=== PATIENT | male | born 1985 | race American Indian/Alaskan Native ===

== ENCOUNTER 2019-04-20 07:53 | Emergency (ER) | payer SELFPAY ==
[2019-04-20 08:09] VITALS: BP 185/86
[2019-04-20] MEDS ORDERED: ACETAMINOPHEN 325 MG TAB PO ONE (08:10)
[2019-04-20] MEDS ORDERED: ACETAMINOPHEN 325 MG TAB ONE (08:12)
[2019-04-20] MEDS ORDERED: ONDANSETRON 4 MG/2 ML INJ IM ONE (08:43)
[2019-04-20] MEDS ORDERED: KETOROLAC 60 MG/2 ML INJ IM ONE (08:43)
--- NOTE | 2019-04-20 09:08 | XRay Report ---
CHEST 2 VIEWS INDICATION: productive cough with fever. COMPARISON: None FINDINGS: Support devices: None. Heart: Within normal limits. Lungs/pleura: Patchy infiltrate is identified throughout the left upper lobe. The right lung is clear . No significant pleural effusion or pneumothorax is detected. Additional findings: None. IMPRESSION: Left upper lobe pneumonia Signer Name: Deejay Johnson Jr, MD Signed: 04/20/2019 9:03 AM Workstation Name: [id number]
[2019-04-20] MEDS ORDERED: levoFLOXacin 500 MG TAB PO ONE (09:35)
--- NOTE | 2019-04-20 09:44 | Emergency Department Report ---
ED General Adult HPI - General Chief complaint: Fever Stated complaint: COUGH/FEVER/CHILLS/WEAKNESS Time Seen by Provider: 04/20/19 08:35 Source: patient Mode of arrival: Ambulatory Limitations: No Limitations - History of Present Illness Initial comments: Patient is a 33-year-old -[place] male who is presenting with fever cough for the past 2 days. Patient states that he's had approximately 6 episodes of vomiting mostly after coughing. Patient is complaining of chills and fever as well. Patient states cough is productive of clear mucus. Patient has some mild body aches. Patient states he has some left-sided chest discomfort as well. Patient states his throat is sore secondary to the vomiting. Patient denies diarrhea next stiffness or syncope. Severity scale (0 -10): 9 - Related Data Previous Rx's Medication Instructions Recorded Last Taken Type ALBUTEROL Inhaler (OR & NICU) 2 puff IH QID PRN #1 inhalation 04/20/19 Unknown Rx [ProAir HFA Inhaler] Benzonatate [Tessalon Perles] 100 mg PO Q8HR #10 capsule 04/20/19 Unknown Rx Ondansetron [Zofran Odt] 4 mg PO Q8HR #10 tab.rapdis 04/20/19 Unknown Rx guaiFENesin/CODEINE [Robitussin AC] 5 ml PO Q6HR PRN #100 oral.liqd 04/20/19 Unknown Rx levoFLOXacin [Levaquin TAB] 500 mg PO QDAY #10 tablet 04/20/19 Unknown Rx predniSONE [Deltasone] 20 mg PO QDAY #5 tab 04/20/19 Unknown Rx Allergies Allergy/AdvReac Type Severity Reaction Status Date / Time No Known Allergies Allergy Unverified 04/20/19 08:04 ED Review of Systems ROS: Stated complaint: COUGH/FEVER/CHILLS/WEAKNESS Other details as noted in HPI Comment: All other systems reviewed and negative ED Past Medical Hx - Past Medical History Previous Medical History?: No - Surgical History Past Surgical History?: No - Social History Smoking Status: Never Smoker Substance Use Type: None - Medications Home Medications: Home Medications Medication Instructions Recorded Confirmed Last Taken Type ALBUTEROL Inhaler (OR & NICU) 2 puff IH QID PRN #1 inhalation 04/20/19 Unknown Rx [ProAir HFA Inhaler] Benzonatate [Tessalon Perles] 100 mg PO Q8HR #10 capsule 04/20/19 Unknown Rx Ondansetron [Zofran Odt] 4 mg PO Q8HR #10 tab.rapdis 04/20/19 Unknown Rx guaiFENesin/CODEINE [Robitussin AC] 5 ml PO Q6HR PRN #100 oral.liqd 04/20/19 Unknown Rx levoFLOXacin [Levaquin TAB] 500 mg PO QDAY #10 tablet 04/20/19 Unknown Rx predniSONE [Deltasone] 20 mg PO QDAY #5 tab 04/20/19 Unknown Rx ED Physical Exam - General Limitations: No Limitations General appearance: alert, in no apparent distress - Head Head exam: Present: atraumatic, normocephalic - Eye Eye exam: Present: normal appearance, PERRL, EOMI - ENT ENT exam: Present: mucous membranes moist. Absent: normal orophraynx (mild erythema to the posterior pharynx without tonsillar swelling or exudate) - Neck Neck exam: Present: normal inspection. Absent: lymphadenopathy - Respiratory Respiratory exam: Present: normal lung sounds bilaterally. Absent: respiratory distress, wheezes, rales, rhonchi - Cardiovascular Cardiovascular Exam: Present: regular rate, normal rhythm, tachycardia. Absent: systolic murmur, diastolic murmur, rubs, gallop - GI/Abdominal GI/Abdominal exam: Present: soft, tenderness (mild epigastric tenderness to palpation), normal bowel sounds. Absent: distended, guarding, rebound - Rectal Rectal exam: Present: deferred - Extremities Exam Extremities exam: Present: normal inspection - Back Exam Back exam: Present: normal inspection - Neurological Exam Neurological exam: Present: alert, oriented X3 - Psychiatric Psychiatric exam: Present: normal affect, normal mood - Skin Skin exam: Present: warm, dry, intact, normal color. Absent: rash ED Course Vital Signs 04/20/19 08:08 Temperature 101.9 F H Pulse Rate 111 H Respiratory 18 Rate Blood Pressure 185/86 O2 Sat by Pulse 96 Oximetry ED Medical Decision Making - Lab Data Lab Results 04/20/19 Range/Units 08:56 Monoscreen Negative (Negative) - Radiology Data CHEST 2 VIEWS INDICATION: productive cough with fever. COMPARISON: None FINDINGS: Support devices: None. Heart: Within normal limits. Lungs/pleura: Patchy infiltrate is identified throughout the left upper lobe. The right lung is clear. No significant pleural effusion or pneumothorax is detected. Additional findings: None. IMPRESSION: Left upper lobe pneumonia Signer Name: Deejay Johnson Jr, MD Signed: 04/20/2019 9:03 AM Workstation Name: [id number] Transcribed By: TTR Dictated By: DEEJAY JOHNSON JR, MD Electronically Authenticated By: DEEJAY JOHNSON JR, MD Signed Date/Time: 04/20/19 0903 - Medical Decision Making She is a 33-year-old -[place] male who is presenting with cough congestion as well as post tussive emesis and fever. Patient's x-rays consistent with a left upper lobe pneumonia. Patient be started on Levaquin. Patient was given a good Rx card to help take down the lovell of this medication. Patient given antiemetics and pain meds as well the patient will be discharged home. Critical care attestation.: If time is entered above; I have spent that time in minutes in the direct care of this critically ill patient, excluding procedure time. ED Disposition Clinical Impression: Pneumonia Qualifiers: Pneumonia type: due to unspecified organism Laterality: left Lung location: upper lobe of lung Qualified Code(s): J18.9 - Pneumonia, unspecified organism Disposition: DC-01 TO HOME OR SELFCARE Is pt being admited?: No Does the pt Need Aspirin: No Condition: Stable Instructions: Bacterial Pneumonia (ED) Referrals: DINO BEAVERS MD [Staff Physician] - 3-5 Days SMOOT ROMANA GILL MD [Referring] - 3-5 Days Time of Disposition: 09:44
== END 2019-04-20 09:57 | disposition home or self-care (01) ==
LOC: ED 07:53
DX: J18.9 Pneumonia, unspecified organism (principal); Z79.899 Other long term (current) drug therapy
CPT/HCPCS: 36415; 71046; 86308; 96372; 99284; J1885; J2405